=== PATIENT | male | born 1955 | race African-American/Black ===

== ENCOUNTER 2016-11-26 17:03 | Emergency (ER) | payer MEDICARE, OTHER ==
[~2016-11-26] VITALS: Ht 182.9 cm; Wt 97.5 kg
[2016-11-26 17:45] VITALS: BP 130/78
[2016-11-26 19:12] VITALS: BP 130/78
--- NOTE | 2016-11-30 06:53 | Emergency Room Report ---
History of Present Illness General Chief Complaint: Alcohol Intoxication Source: Patient, EMS Present Illness HPI 61YOM BIBEMS for suspected acute ETOH intoxication Found in street No sign of trauma Patient arousable to verbal/physical stimuli +AOB per EMS HPI otherwise limited d/t intoxication Allergies: Coded Allergies: UNABLE TO ASSESS (Unverified , 11/26/16) Patient History Past Medical History: unable to obtain Past Surgical History: unable to obtain Pertinent Family History: unable to obtain Social History: Reports: alcohol use Immunizations: UTD Reviewed Nursing Documentation: PMH: Agreed, PSxH: Agreed Nursing Documentation-PMH Past Medical History: Deferred Review of Systems All Other Systems: negative except mentioned in HPI Physical Exam Vital Signs Date Time Temp Pulse Resp B/P (MAP) Pulse Ox O2 Delivery O2 Flow Rate FiO2 11/26/16 16:48 97.9 145 18 150/80 98 Room Air Sp02 EP Interpretation: reviewed, normal General Appearance: normal inspection, well appearing, no apparent distress, alert, non-toxic, obese, other - +AOB Head: normocephalic, atraumatic Eyes: bilateral eye PERRL, bilateral eye EOMI ENT: normal ENT inspection, hearing grossly normal, normal voice Neck: normal inspection, full range of motion, supple, no bony tend Respiratory: normal inspection, lungs clear, normal breath sounds, no respiratory distress, no retraction, no wheezing Cardiovascular #1: regular rate, rhythm, no edema Gastrointestinal: normal inspection, normal bowel sounds, non tender, soft, no guarding, no hernia Genitourinary: no CVA tenderness Musculoskeletal: normal inspection, back normal, normal range of motion, Zuri' s Sign negative Neurologic: normal inspection, alert, responsive, program proposals coordinator III-XII nml as tested, motor strength/tone normal, speech normal Psychiatric: normal inspection, judgement/insight normal, mood/affect normal Skin: normal inspection, normal color, no rash Lymphatic: normal inspection Medical Decision Making Diagnostic Impression: Primary Impression: Acute alcoholic intoxication Qualified Codes: F10.929 - Alcohol use, unspecified with intoxication, unspecified ER Course Acute ETOH intox VSS. Afebrile Atraumatic No focal neuro deficits Observed until sober Ambulating with steady gait Tolerating PO Wants to go home Counseled on heavy ETOH Last Vital Signs Date Time Temp Pulse Resp B/P (MAP) Pulse Ox O2 Delivery O2 Flow Rate FiO2 11/26/16 19:12 97.9 105 18 130/78 98 Room Air Status: improved Disposition: HOME, SELF-CARE Condition: Improved Referrals: NOT CHOSEN IPA/,REFERRING (PCP) Patient Instructions: Alcohol Intoxication, [id number] MAILE MAHONEY M.D. Nov 30, 2016 06:53
== END 2016-11-26 19:12 | disposition home or self-care (01) ==
LOC: EDBD 17:03 → EMR 19:12
DX: F10.929 Alcohol use, unspecified with intoxication, unspecified (principal)
CPT/HCPCS: 99282